=== PATIENT | female | born 1960 | race Caucasian/White ===

== ENCOUNTER 2017-02-12 04:01 | Emergency (ER) | payer OTHER ==
[2017-02-12 04:20] VITALS: BMI 28.1
[2017-02-12] MEDS ORDERED: morphine CARPU-JECT 4 MG/1 ML DISP.SYRIN IVPUSH ONE (04:47)
[2017-02-12] MEDS ORDERED: ONDANSETRON 4 MG/2 ML VIAL IVPUSH ONE ×3 (04:47→12:08)
[2017-02-12] MEDS ORDERED: SODIUM CHLORIDE 1,000 ML IV STA (04:47)
--- NOTE | 2017-02-12 04:51 | PDOC ---
History of Present Illness - General History Source: Patient, Significant Other Exam Limitations: No Limitations - History of Present Illness Travel History: No Initial Comments: 02/12/17 04:47 56yo Female patient w/ PmHx: Gastritis, Hiatal Hernia presents to ED c/o generalized abdominal pain that began around 3 am this morning w/ profound diarrhea and vomiting. Patient denies fever, cough, congestion, dysuria, hematuria, back pain, CP, diff breathing or any other complaints at this time. Timing/Duration: reports: getting worse. denies: constant, changing over time, intermittent, resolved prior to arrival, gone now, other Quality: reports: moderate, cramping, sharpness. denies: mild, severe, aching, burning, dullness, fullness, stabbing, throbbing, other Abdominal Pain Onset Location: reports: generalized abdomen. denies: RUQ, LUQ, RLQ, LLQ, epigastric, periumbilical, suprapubic, flank, unknown, other <Grace Virgen - Last Filed: 02/12/17 04:47> <Natali Mcmahon - Last Filed: 02/12/17 12:00> - General Chief Complaint: Diarrhea Stated Complaint: ABDOMINAL PAIN Time Seen by Provider: 02/12/17 04:08 Past History - Travel Traveled outside of the country in the last 30 days: No Close contact w/someone who was outside of country & ill: No - Past Medical History Anemia: No Asthma: No Cancer: No Cardiac Disorders: No CVA: No COPD: No CHF: No Dementia: No GI Disorders: Yes (CHRONIC GASTRITIS; HERNIA) Disorders: No HTN: No Hypercholesterolemia: No Liver Disease: No Seizures: No Thyroid Disease: No - Surgical History Abdominal Surgery: No Appendectomy: No Cardiac Surgery: No Cholecystectomy: No Lung Surgery: No Neurologic Surgery: No Orthopedic Surgery: No - Suicide/Smoking/Psychosocial Hx Smoking Status: No Smoking History: Never smoked Have you smoked in the past 12 months: No Number of Cigarettes Smoked Daily: 0 Information on smoking cessation initiated: No Hx Alcohol Use: No Drug/Substance Use Hx: No Substance Use Type: None Hx Substance Use Treatment: No <Grace Virgen - Last Filed: 02/12/17 04:47> <Natali Mcmahon - Last Filed: 02/12/17 12:00> - Past Medical History Allergies/Adverse Reactions: Allergies Allergy/AdvReac Type Severity Reaction Status Date / Time No Known Drug Allergies Allergy Verified 02/12/17 04:20 Home Medications: Ambulatory Orders No Home Medications 0 dose .ROUTE UTDICT 04/03/12 Dicyclomine HCl [Bentyl] 20 mg PO QID PRN #56 capsule 02/12/17 Loperamide HCl [Loperamide] 2 mg PO QID #10 tablet MDD 16mg 02/12/17 Abd/GI Specific PMHX - Complaint Specific PMHX Colitis: No Diverticulitis: No Gall Bladder Disease: No GERD: No Hepatitis: No Irritable Bowel Synd (IBS): No Pancreatitis: No GI Ulcer Disease: No <Grace Virgen - Last Filed: 02/12/17 04:47> Review of Systems - Review of Systems Able to Perform ROS?: Yes Is the patient limited [place] proficient: No Constitutional: No: Chills, Fever ABD/GI: Yes: Diarrhea, Nausea, Vomiting, Abdominal cramping (Generalized). No: Constipated All Other Systems: Reviewed and Negative <Grace Virgen - Last Filed: 02/12/17 04:47> *Physical Exam - Vital Signs Last Vital Signs Temp Pulse Resp BP Pulse Ox 98.8 F 95 H 20 131/79 98 02/12/17 04:11 02/12/17 04:11 02/12/17 04:11 02/12/17 04:11 02/12/17 04:11 - Physical Exam General Appearance: Yes: Nourished, Appropriately Dressed, Mild Distress. No: Apparent Distress, Moderate Distress, Severe Distress Respiratory/Chest: positive: Lungs Clear, Normal Breath Sounds. negative: Chest Tender, Respiratory Distress, Accessory Muscle Use, Labored Respiration, Rapid RR, Paradoxal Breathing, Rhonchi, Stridor, Wheezing, Hyperresonant Cardiovascular: positive: Regular Rhythm, Regular Rate Gastrointestinal/Abdominal: positive: Tender, Soft, Decreased BS, Distended, Guarding, Rebound, Tenderness Musculoskeletal: positive: Normal Inspection. negative: CVA Tenderness, Decreased Range of Motion, Vertebral Tenderness Extremity: positive: Normal Capillary Refill, Normal Inspection, Normal Range of Motion. negative: Pedal Edema, Swelling, Calf Tenderness, Erythema, Inflammation Integumentary: positive: Normal Color, Dry, Warm Neurologic: positive: gear and spline grinder II-XII NML intact, Fully Oriented, Alert, Normal Mood/ Affect, Normal Response, Motor Strength 5/5 <Grace Virgen - Last Filed: 02/12/17 04:47> - Vital Signs Last Vital Signs Temp Pulse Resp BP Pulse Ox 98.6 F 89 18 131/74 98 02/12/17 08:11 02/12/17 08:11 02/12/17 08:11 02/12/17 08:11 02/12/17 08:11 <Natali Mcmahon - Last Filed: 02/12/17 12:00> ED Treatment Course - RADIOLOGY Radiology Studies Ordered: Category Date Time Status ABDOMEN & PELVIS CT WITH CONTR [CT] Stat CT Scan 02/12/17 04:44 Ordered CHEST X-RAY PORTABLE* [RAD] Stat Radiology 02/12/17 04:44 Ordered <Grace Virgen - Last Filed: 02/12/17 04:47> - LABORATORY CBC & Chemistry Diagram: 02/12/17 05:05 02/12/17 06:29 - ADDITIONAL ORDERS Additional order review: Laboratory Results 02/12/17 02/12/17 02/12/17 06:29 06:29 05:51 PT with INR INR Sodium 142 Cancelled Potassium 3.7 Cancelled Chloride 109 H Cancelled Carbon Dioxide 25 Cancelled Anion Gap 8 Cancelled BUN 14 D Cancelled Creatinine 0.8 D Cancelled Creat Clearance w eGFR > 60 Cancelled Random Glucose 147 H D Cancelled Calcium 8.0 L Cancelled Total Bilirubin 0.5 D Cancelled AST 32 D Cancelled ALT 44 D Cancelled Alkaline Phosphatase 99 D Cancelled Creatine Kinase 156 Creatine Kinase Index 0.9 CK-MB (CK-2) 1.556 Troponin I < 0.02 Total Protein 7.0 Cancelled Albumin 3.6 Cancelled Total Amylase 95 Lipase 100 02/12/17 02/12/17 02/12/17 05:05 05:05 05:05 PT with INR 12.20 H INR 1.08 Sodium Cancelled Potassium Cancelled Chloride Cancelled Carbon Dioxide Cancelled Anion Gap Cancelled BUN Cancelled Creatinine Cancelled Creat Clearance w eGFR Cancelled Random Glucose Cancelled Calcium Cancelled Total Bilirubin Cancelled AST Cancelled ALT Cancelled Alkaline Phosphatase Cancelled Creatine Kinase Cancelled Creatine Kinase Index CK-MB (CK-2) Troponin I Cancelled Total Protein Cancelled Albumin Cancelled Total Amylase Cancelled Lipase Cancelled 02/12/17 05:05 RBC 4.85 MCV 91.8 MCHC 32.8 RDW 14.6 MPV 9.5 Neutrophils % 78.3 Lymphocytes % 11.9 D Monocytes % 7.8 Eosinophils % 1.3 Basophils % 0.7 - Medications Given in the ED: ED Medications Discontinued Medications Generic Name Dose Route Start Last Admin Trade Name Sarwat PRN Reason Stop Dose Admin Hydromorphone HCl 1 mg 02/12/17 07:05 02/12/17 08:00 Dilaudid Injection - IVPUSH 02/12/17 07:06 1 mg ONCE ONE Administration Sodium Chloride 1,000 mls @ 1,000 mls/hr 02/12/17 04:47 02/12/17 05:13 Normal Saline - IV 02/12/17 05:46 1,000 mls/hr ASDIR STA Administration Famotidine/Sodium Chloride 20 mg in 50 mls @ 100 mls/hr 02/12/17 07:40 08:03 Pepcid 20 Mg Premixed Ivpb - IVPB 02/12/17 08:09 100 mls/hr ONCE ONE Administration Morphine Sulfate 4 mg 02/12/17 04:47 02/12/17 05:25 Morphine Injection - IVPUSH 02/12/17 04:48 4 mg ONCE ONE Administration Ondansetron HCl 4 mg 02/12/17 04:47 02/12/17 05:25 Zofran Injection IVPUSH 02/12/17 04:48 4 mg ONCE ONE Administration Ondansetron HCl 4 mg 02/12/17 09:31 02/12/17 09:31 Zofran Injection IVPUSH 02/12/17 09:32 4 mg NOW ONE Administration Sodium Chloride 1,000 ml 02/12/17 09:34 02/12/17 10:21 Normal Saline - IV 02/12/17 09:35 1,000 ml ONCE STA Administration <Natali Mcmahon - Last Filed: 02/12/17 12:00> Progress Note - Progress Note Progress Note: discussed in detail via kyrgyz speaking RN Sally goldman instructions to the patient and the family regarding the plan of care. pt has no vomiting or diarrhea while in ER had one loose stool at 10am. pt understands the diet should be clears, the pt is given medications to help with her symptoms. pt will return to ER if any worsening symptoms, bloody stool, vomiting or fever. <Natali Mcmahon - Last Filed: 02/12/17 12:00> *DC/Admit/Observation/Transfer <Grace Virgen - Last Filed: 02/12/17 04:47> <Natali Mcmahon - Last Filed: 02/12/17 12:00> Diagnosis at time of Disposition: Colitis - Discharge Dispostion Disposition: HOME Condition at time of disposition: Fair - Prescriptions Prescriptions: Dicyclomine HCl [Bentyl] 20 mg PO QID PRN #56 capsule PRN Reason: abdominal cramping/pain Loperamide HCl [Loperamide] 2 mg PO QID #10 tablet MDD 16mg - Referrals Referrals: Kerline Thurston MD [Primary Care Provider] - Moe Bunn MD [Staff Physician] - - Patient Instructions Printed Discharge Instructions: DI for Colitis Additional Instructions: drink pleanty of water to stay hydrated bland diet take the medications as prescribed follow with the daycare worker Dr. Bunn next week for follow up Return to ER for any worsening symptoms
--- NOTE | 2017-02-12 04:54 | PDOC ---
*Physical Exam - Vital Signs Last Vital Signs Temp Pulse Resp BP Pulse Ox 98.8 F 95 H 20 131/79 98 02/12/17 04:11 02/12/17 04:11 02/12/17 04:11 02/12/17 04:11 02/12/17 04:11 ED Treatment Course - LABORATORY CBC & Chemistry Diagram: 02/12/17 05:05 02/12/17 06:29 Medical Decision Making - Medical Decision Making 02/12/17 04:54 agree with care from DARRELL Virgen *DC/Admit/Observation/Transfer Diagnosis at time of Disposition: Colitis - Discharge Dispostion Disposition: HOME Condition at time of disposition: Fair - Prescriptions Prescriptions: Dicyclomine HCl [Bentyl] 20 mg PO QID PRN #56 capsule PRN Reason: abdominal cramping/pain Loperamide HCl [Loperamide] 2 mg PO QID #10 tablet MDD 16mg - Referrals Referrals: Moe Bunn MD [Staff Physician] - Kerline Thurston MD [Primary Care Provider] - - Patient Instructions Printed Discharge Instructions: DI for Colitis Additional Instructions: drink pleanty of water to stay hydrated bland diet take the medications as prescribed follow with the circuit breaker mechanic Dr. Bunn next week for follow up Return to ER for any worsening symptoms - Post Discharge Activity
[2017-02-12 05:08] LABS: BASOPHIL 0.7 % (0-2.0); EOSINOPHIL 1.3 % (0-4.5); MCH 30.1 pg (25.7-33.7); MCHC 32.8 g/dl (32.0-36.0); MEAN CELL VOLUME 91.8 fl (80-96); MEAN PLT VOLUME 9.5 fl (7.5-11.1); NEUTROPHILS 78.3 % (42.8-82.8); PLATELET COUNT 273 K/MM3 (134-434); RDW 14.6 % (11.6-15.6); WHITE BLOOD COUNT 12.7 K/mm3 (4.0-10.0)
[2017-02-12] MEDS ORDERED: morphine SULFATE 4 MG/ML VIAL ONE (05:17)
[2017-02-12] MEDS ORDERED: ONDANSETRON 4 MG/2 ML VIAL ONE ×2 (05:17→09:27)
[2017-02-12 05:20] LABS: INR 1.08 (0.82-1.09); PROTHROMBIN TIME (PATIENT) 12.2 SEC (9.98-11.88)
[2017-02-12] MEDS ORDERED: HYDROmorphone HCL CARPU-JECT 1 MG/1 ML DISP.SYRIN IVPUSH ONE (07:05)
[2017-02-12 07:08] LABS: AMYLASE 95 U/L (25-115); CPK 156 IU/L (26-192)
[2017-02-12 07:09] LABS: TROPONIN I < 0.02 ng/ml (0.00-0.05)
[2017-02-12] MEDS ORDERED: FAMOTIDINE 20 MG/50 ML IVPB 20 MG/50 ML MG IVPB ONE ×2 (07:40→07:58)
[2017-02-12 07:46] LABS: ALBUMIN 3.6 g/dl (3.4-5.0); ANION GAP 8 (8-16); BILIRUBIN,TOTAL 0.5 mg/dL (0.2-1.0); CO2 25 mmol/L (21-32); CREATININE 0.8 mg/dL (0.55-1.02); GLUCOSE,RANDOM 147 mg/dL (74-106); SGOT/AST 32 U/L (15-37)
[2017-02-12] MEDS ORDERED: HYDROmorphone HCL CARPU-JECT 1 MG/1 ML DISP.SYRIN ONE (07:58)
[2017-02-12 08:04] LABS: ALK PHOS 99 U/L (45-117); SGPT/ALT 44 U/L (12-78)
[2017-02-12 08:14] VITALS: TEMP 98.6
[2017-02-12] MEDS ORDERED: SODIUM CHLORIDE 0.9% 1000 ML INFUS.BAG IV STA (09:34)
[2017-02-12] MEDS ORDERED: ONDANSETRON *ODT* 4 MG TABLET SL ONE (12:10)
[2017-02-12] MEDS ORDERED: ONDANSETRON *ODT* 4 MG TABLET ONE (12:11)
--- NOTE | 2017-02-12 12:11 | EKG ---
Test Reason : Blood Pressure : / mmHG Vent. Rate : 057 BPM Atrial Rate : 057 BPM P-R Int : 140 ms QRS Dur : 082 ms QT Int : 464 ms P-R-T Axes : 026 019 004 degrees QTc Int : 451 ms SINUS BRADYCARDIA LOW VOLTAGE QRS NONSPECIFIC T WAVE ABNORMALITY ABNORMAL ECG WHEN COMPARED WITH ECG OF 03-APR-2012 13:22, NONSPECIFIC T WAVE ABNORMALITY NOW EVIDENT IN LATERAL LEADS Confirmed by FRANCOIS MANNING, DELICIA ([id number]) on 02/12/2017 12:10:42 PM Referred By: Confirmed By:DELICIA PARRISH MD
[2017-02-12 12:13] VITALS: BP 145/86; PULSE 59
== END 2017-02-12 12:14 | disposition home or self-care (01) ==
LOC: JER 04:01
PROC: 3E033GC Introduction of Other Therapeutic Substance into Peripheral Vein, Percutaneous Approach (ICD-10-PCS; principal; 2017-02-12)
PROC: 3E033GC Introduction of Other Therapeutic Substance into Peripheral Vein, Percutaneous Approach (ICD-10-PCS; 2017-02-12)
PROC: 3E033GC Introduction of Other Therapeutic Substance into Peripheral Vein, Percutaneous Approach (ICD-10-PCS; 2017-02-12)
PROC: 3E033NZ Introduction of Analgesics, Hypnotics, Sedatives into Peripheral Vein, Percutaneous Approach (ICD-10-PCS; 2017-02-12)
PROC: 3E033NZ Introduction of Analgesics, Hypnotics, Sedatives into Peripheral Vein, Percutaneous Approach (ICD-10-PCS; 2017-02-12)
DX: K52.9 Noninfective gastroenteritis and colitis, unspecified (principal); K29.50 Unspecified chronic gastritis without bleeding
CPT/HCPCS: 36415; 71010-TC; 74177-TC; 80053; 82150; 82550; 82553; 83690; 84484; 85025; 85610; 93005; 93010; 99284-25

== ENCOUNTER 2017-12-27 06:45 | Emergency (ER) | payer OTHER ==
[2017-12-27] MEDS ORDERED: SODIUM CHLORIDE 1,000 ML IV STA (07:24)
[2017-12-27 07:26] VITALS: BMI 27.3
--- NOTE | 2017-12-27 07:35 | PDOC ---
History of Present Illness - General Chief Complaint: Pain, Acute Stated Complaint: PAIN,RT SIDE Time Seen by Provider: 12/27/17 07:22 History Source: Patient - History of Present Illness Initial Comments: 12/27/17 07:33 57 year old female with a PMH of nephrolithiasis, HTN and recent (10 days previous) ventral hernia repair presents to our ED c/o worsening R flank pain. Pain is constant, 7/10, and localized to her R flank. States she took 2 Tylenol (500 mg) with little relief of her pain. Surgical: ventral hernia repair, R ovarian cyst removal, hysterectomy Past History - Past Medical History Allergies/Adverse Reactions: Allergies Allergy/AdvReac Type Severity Reaction Status Date / Time No Known Drug Allergies Allergy Verified 12/27/17 07:12 Home Medications: Ambulatory Orders NK [No Known Home Medication] 12/27/17 Anemia: No Asthma: No Cancer: No Cardiac Disorders: No CVA: No COPD: No CHF: No Dementia: No GI Disorders: Yes (CHRONIC GASTRITIS; HERNIA) Disorders: No HTN: No Hypercholesterolemia: No Liver Disease: No Seizures: No Thyroid Disease: No - Surgical History Abdominal Surgery: No Appendectomy: No Cardiac Surgery: No Cholecystectomy: No Lung Surgery: No Neurologic Surgery: No Orthopedic Surgery: No - Suicide/Smoking/Psychosocial Hx Smoking Status: No Smoking History: Never smoked Have you smoked in the past 12 months: No Number of Cigarettes Smoked Daily: 0 Hx Alcohol Use: No Drug/Substance Use Hx: No Substance Use Type: None Hx Substance Use Treatment: No *Physical Exam - Vital Signs Last Vital Signs Temp Pulse Resp BP Pulse Ox 97.9 F 60 20 129/80 98 12/27/17 07:09 12/27/17 07:09 12/27/17 07:09 12/27/17 07:09 12/27/17 07:09 Medical Decision Making - Medical Decision Making 12/27/17 07:36 57 year old female with R flank pain. H/o recent ventral hernia repair *DC/Admit/Observation/Transfer - Referrals Referrals: Mady Doran MD [Primary Care Provider] - - Patient Instructions - Post Discharge Activity
[2017-12-27] MEDS ORDERED: KETOROLAC TROMETHAMINE 15 MG/ML VIAL IVPUSH ONE (07:59)
--- NOTE | 2017-12-27 08:01 | PDOC ---
History of Present Illness - General Chief Complaint: Pain, Acute Stated Complaint: PAIN,RT SIDE Time Seen by Provider: 12/27/17 07:22 History Source: Patient, Family Exam Limitations: No Limitations - History of Present Illness Initial Comments: 12/27/17 08:00 Wilder 57 YOF with h/o kidney stones, recent hernia repair, previous colitis, presenting with acute onset of worsening right flank and abdominal pain x 1 day , beginning 4pm yesterday. took tylenol today, without relief. denies trauma, exacerbating or alleviating factors recent post op from laparoscopic hernia repair with Dr. Sawyer? in [place] , uncomplicated course no f/c, vomiting, diarrhea, constipation, cp, sob, leg swelling, weakness or paresthesias, salcedo, dizziness, dysuria, frequency or urgency. denies ETOH, tobacco or drug use PSHx: tubal ligation, lap hernia repair 12/27/17 08:03 Past History - Past Medical History Allergies/Adverse Reactions: Allergies Allergy/AdvReac Type Severity Reaction Status Date / Time No Known Drug Allergies Allergy Verified 12/27/17 07:12 Home Medications: Ambulatory Orders Ciprofloxacin [Cipro -] 500 mg PO Q12H 10 Days #20 tablet 12/27/17 metroNIDAZOLE [Flagyl -] 500 mg PO BID 10 Days #20 tablet 12/27/17 Anemia: No Asthma: No Cancer: No Cardiac Disorders: No CVA: No COPD: No CHF: No Dementia: No GI Disorders: Yes (CHRONIC GASTRITIS; HERNIA) Disorders: No HTN: No Hypercholesterolemia: No Liver Disease: No Seizures: No Thyroid Disease: No - Surgical History Abdominal Surgery: No Appendectomy: No Cardiac Surgery: No Cholecystectomy: No Lung Surgery: No Neurologic Surgery: No Orthopedic Surgery: No - Suicide/Smoking/Psychosocial Hx Smoking Status: No Smoking History: Never smoked Have you smoked in the past 12 months: No Number of Cigarettes Smoked Daily: 0 Hx Alcohol Use: No Drug/Substance Use Hx: No Substance Use Type: None Hx Substance Use Treatment: No Abd/GI Specific PMHX - Complaint Specific PMHX Colitis: No Diverticulitis: No Gall Bladder Disease: No GERD: No Hepatitis: No Irritable Bowel Synd (IBS): No Pancreatitis: No GI Ulcer Disease: No Review of Systems - Review of Systems Able to Perform ROS?: Yes Comments:: 12/27/17 08:07 Constitutional: no fevers or chills. HEENT: no headache or dizziness. no congestion. CVS: no cp or syncope. Resp: no sob. no cough. Abdomen: +abdominal pain, no diarrhea, constipation, bloody stools, nausea or vomiting. Back: +back pain : no urinary sx, dysuria, urgency or frequency. MUSCULOSKELETAL: No joint pain and swelling. No neck pain. SKIN: no redness or skin changes, no discharge, no rash. Hematologic: no easy bruising/bleeding. NEUROLOGIC: No headache, dizziness, LOC or altered mental status. No weakness, numbness or tingling. All other systems reviewed and negative, or as documented in HPI. *Physical Exam - Vital Signs Last Vital Signs Temp Pulse Resp BP Pulse Ox 97.9 F 60 20 129/80 98 12/27/17 07:09 12/27/17 07:09 12/27/17 07:09 12/27/17 07:09 12/27/17 07:09 - Physical Exam Comments: 12/27/17 08:08 General: Well appearing, awake and alert, NAD. HEENT: NCAT, PERRL, EOMI, clear conjunctiva, anicteric, moist mucus membranes, clear oropharynx, no oral lesions.. Neck: neck supple, FROM Resp: CTAB, normal and even respirations, no respiratory distress CVS: RRR, no murmurs, 2+ peripheral pulses throughout, no peripheral edema Abdomen: soft, +right sided and suprapubic TTP, no peritoneal signs. +right CVAT. neg Zamudio's, neg Mcburney's point. no rebound or guarding. Back: normal inspection and ROM MSK: no edema, CHANDRA x4, ROM intact. No clubbing or cyanosis. normal bulk and tone. Neuro: alert, oriented appropriately; no focal neurologic deficits Skin: warm and well perfused, cap refill <2 sec, normal color ED Treatment Course - LABORATORY CBC & Chemistry Diagram: 12/27/17 08:30 12/27/17 08:30 Medical Decision Making - Medical Decision Making 12/27/17 08:09 57 YOF with AP and flank pain x 1 day. recent lap hernia repair 10 days ago, uncomplicated course. DDx abdominal pain: Renal colic, biliary colic, GERD, PUD, esophageal spasm, pancreatitis, hepatitis, constipation, colitis, gastroenteritis, cholecystitis, UTI, pyelonephritis, ileus, SBO, medication side effect, hernia, appendicitis, diverticulitis, mesenteric ischemia. vitals wnl, afebrile POCUS renal at bedside: bilateral mild hydro noted, with color doppler; full bladder with bilateral jets visualized. biliary sludge, neg for acute cholecystitis. CBD size ~4-5cm concordant with age. ED course: given IVF and analgesia with NSAIDS, trial of PO tylenol earlier today without relief labs and lytes wnl, no wbc ct. UA neg for blood or infection, so less likely stone/renal colic. CT meghna to r/o obstructing stone. CT a/p with peripelvic cysts, no hydro. focal thickening in desc/sigmoid colon, correlating with possible early acute colitis. will treat with abx, cipro/flagyl x 10 days, instructions to take with food, light food diet/hydration, avoid food triggers and fibrous foods until sx improve. continue with OTC tyl/motrin as needed. on clinical reeval, feels much improved, rachel PO, well appearing, mild lower quad tenderness without peritoneal findings, VS wnl, no fever and feels comfortable with discharge plan and PMD followup dispo: Pt to be discharged in stable condition. Patient and family made aware of impression and plan, return precautions discussed (including but not limited to worsening pain or symptoms), fevers, or signs of infection, chest pain, respiratory distress, inability to tolerate oral intake, dehydration, syncope, or neurologic changes). Follow up with PMD and/or specialist as recommended, follow up information provided, take medications as instructed for duration of time. continue with supportive care, avoid triggers and precipitants. 12/27/17 10:52 *DC/Admit/Observation/Transfer Diagnosis at time of Disposition: Colitis, Abdominal pain - Discharge Dispostion Disposition: HOME Condition at time of disposition: Improved Decision to Admit order: No - Prescriptions Prescriptions: Ciprofloxacin [Cipro -] 500 mg PO Q12H 10 Days #20 tablet metroNIDAZOLE [Flagyl -] 500 mg PO BID 10 Days #20 tablet - Referrals Referrals: Mady Doran MD [Primary Care Provider] - - Patient Instructions Printed Discharge Instructions: DI for Abdominal Pain-Adult, DI for Colitis Additional Instructions: Your laboratory / imaging results were normal, urine testing also negative for infection or blood. Your CT scan showed cysts in your kidney area, but no swelling or abnormalities to suggest kidney stones. There is a focal area of possible early inflammation and thickening in colon which can be treated with antibiotics for 10 days. You are given ciprofloxacin and flagyl for 10 days, take twice a day. Take with food, avoid alcohol. Light diet to be continued, adequate hydration encouraged, avoid precipitating food factors such as fatty, fiber or spicy foods. Follow up with your physician, primary doctor. Return if worsening symptoms including fevers, headache, vomiting, visual or hearing disturbances, abdominal pain, chest pain, shortness of breath, syncope, dehydration, inability to take things by mouth/vomiting, altered mental status, or worsening concerning symptoms. your medications on discharge include antibiotics with side effects may include upset stomach, abdominal pain, vomiting, or diarrhea. do not drink alcohol with your medications. Bradley resultados de laboratorio / imagenologa fueron normales, las pruebas de orina tambin fueron negativas para la infeccin o la sujey. Lee tomografa computarizada mostr quistes en el andres de los riones, harriet no hay inflamacin ni anomalas que sugieran clculos renales. Existe un andres focal de posible inflamacin temprana y engrosamiento en el colon que puede tratarse con antibiticos nitish 10 de la garza. Se le administrar ciprofloxacina y flagilo nitish 10 de la garza, dos veces al da. David con la comida, evitar el alcohol. Dieta ligera para continuar, se recomienda elizabeth hidratacin adecuada, evite precipitar factores alimenticios melani los alimentos grasos, de fibra o picantes. Seguimiento con lee mdico, mdico caro. Regrese si los sntomas empeoran, incluyendo fiebre, dolor de ayanna, vmitos, trastornos visuales o auditivos, dolor abdominal, dolor de pecho, falta de aliento, sncope, deshidratacin, incapacidad para david cosas por la boca / vmitos, estado mental alterado o empeoramiento de los sntomas. bradley medicamentos para el nohemy incluyen antibiticos con efectos secundarios que pueden incluir malestar estomacal, dolor abdominal, vmitos o diarrea. No tome alcohol con bradley medicamentos. Print Language: YAKUT - Post Discharge Activity
[2017-12-27] MEDS ORDERED: KETOROLAC TROMETHAMINE 15 MG/ML VIAL ONE (08:38)
[2017-12-27 08:47] LABS: BASO % 0.5 % (0-2.0); EOS % 1.6 % (0-4.5); HEMATOCRIT 46.4 % (32.4-45.2); HEMOGLOBIN 15.3 GM/dL (10.7-15.3); LYMPH % 18.9 % (8-40); MCH 30.6 pg (25.7-33.7); MEAN PLT VOLUME 9.2 fl (7.5-11.1); MONO % 6.4 % (3.8-10.2); NEUT % 72.6 % (42.8-82.8); PLATELET COUNT 306 K/MM3 (134-434); RBC 4.99 M/mm3 (3.60-5.2); RDW 14.4 % (11.6-15.6); WHITE BLOOD COUNT 9.6 K/mm3 (4.0-10.0)
[2017-12-27 08:48] LABS: URINE APPEARANCE CLOUDY; URINE BILIRUBIN NEGATIVE (<2.0 mg/dL); URINE COLOR YELLOW; URINE GLUCOSE (UA) NEGATIVE (NEGATIVE); URINE KETONE NEGATIVE (NEGATIVE); URINE LEUK ESTERASE NEGATIVE (NEGATIVE); URINE NITRITE NEGATIVE (NEGATIVE); URINE PROTEIN NEGATIVE (NEGATIVE); URINE UROBILINOGEN NEGATIVE mg/dL (0.2-1.0)
[2017-12-27 09:07] LABS: ALBUMIN 4.1 g/dl (3.4-5.0); ALK PHOS 103 U/L (45-117); ANION GAP 7 MMOL/L (8-16); BILIRUBIN,TOTAL 0.7 mg/dL (0.2-1); BLOOD UREA NITROGEN 9 mg/dL (7-18); CALCIUM 9.4 mg/dL (8.5-10.1); CHLORIDE 103 mmol/L (98-107); CO2 29 mmol/L (21-32); CREATININE 0.9 mg/dL (0.55-1.3); GLUCOSE,RANDOM 112 mg/dL (74-106); LIPASE 106 U/L (73-393); POTASSIUM 3.9 mmol/L (3.5-5.1); SGOT/AST 24 U/L (15-37); SGPT/ALT 38 U/L (13-61); SODIUM 139 mmol/L (136-145); TOT PROT 8.2 g/dl (6.4-8.2)
[2017-12-27] MEDS ORDERED: morphine CARPU-JECT 4 MG/1 ML DISP.SYRIN IVPUSH ONE (10:07)
[2017-12-27] MEDS ORDERED: metroNIDAZOLE 500 MG TABLET PO ONE (10:38)
[2017-12-27] MEDS ORDERED: CIPROFLOXACIN 500 MG TABLET (RESTRICTED TO ID) PO ONE (10:38)
[2017-12-27 10:49] VITALS: BP 139/83; PULSE 56; TEMP 97.5
[2017-12-27] MEDS ORDERED: metroNIDAZOLE 250 MG TABLET ONE (11:08)
== END 2017-12-27 11:19 | disposition home or self-care (01) ==
LOC: JER 06:45
DX: K52.9 Noninfective gastroenteritis and colitis, unspecified (principal); Z87.442 Personal history of urinary calculi; Z87.19 Personal history of other diseases of the digestive system
CPT/HCPCS: 36415; 74176; 80053; 81003; 83690; 85025; 87086; 99283-25; J7030

== ENCOUNTER 2019-02-18 00:29 | Emergency (ER) | payer OTHER ==
[2019-02-18 01:38] VITALS: BP 138/92; PULSE 74; TEMP 98; BMI 28.3
[2019-02-18 02:45] LABS: EPI CELLS 0.4 /HPF (0-5/HPF); HYALINE CASTS 3 /lpf (0-8); URINE APPEARANCE CLEAR; URINE BACTERIA 0.3 /hpf (NEGATIVE); URINE BILIRUBIN NEGATIVE (NEGATIVE); URINE COLOR YELLOW; URINE GLUCOSE (UA) NEGATIVE (NEGATIVE); URINE KETONE NEGATIVE (NEGATIVE); URINE LEUK ESTERASE NEGATIVE (NEGATIVE); URINE NITRITE NEGATIVE (NEGATIVE); URINE PROTEIN NEGATIVE (NEGATIVE); URINE RBC 18 /hpf (0-4); URINE UROBILINOGEN 0.2 mg/dL (0.2-1.0); URINE WBC 3 /hpf (0-5)
[2019-02-18 02:58] LABS: BLOOD UREA NITROGEN 12.9 mg/dL (7-18); CALCIUM 9.2 mg/dL (8.5-10.1); POTASSIUM 4.5 mmol/L (3.5-5.1)
[2019-02-18] MEDS ORDERED: KETOROLAC TROMETHAMINE 60 MG/2 ML VIAL IM ONE (03:08)
--- NOTE | 2019-02-18 03:29 | PDOC ---
History of Present Illness - General Chief Complaint: Pain, Acute Stated Complaint: LEFT SIDE PAIN Time Seen by Provider: 02/18/19 01:32 History Source: Patient Exam Limitations: Language Barrier ([employer] [id number]) - History of Present Illness Initial Comments: 02/18/19 03:29 58F with a PMH of nephrolithiasis who presents to the ER with complaints of L flank pain. The patient states that she was having difficulty walking from the pain but has been taking her oxycodone, last was 8 hours ago. Denies dysuria but has been taking her antibiotics. She states that she had a laser procedure for her stone 5 days ago and had follow up yesterday. Past History - Past Medical History Allergies/Adverse Reactions: Allergies Allergy/AdvReac Type Severity Reaction Status Date / Time No Known Drug Allergies Allergy Verified 02/18/19 01:38 Home Medications: Ambulatory Orders Ciprofloxacin [Cipro -] 500 mg PO Q12H 10 Days #20 tablet 12/27/17 metroNIDAZOLE [Flagyl -] 500 mg PO BID 10 Days #20 tablet 12/27/17 Anemia: No Asthma: No Cancer: No Cardiac Disorders: No CVA: No COPD: No CHF: No Dementia: No GI Disorders: Yes (CHRONIC GASTRITIS; HERNIA) Disorders: No HTN: No Hypercholesterolemia: No Liver Disease: No Seizures: No Thyroid Disease: No - Surgical History Abdominal Surgery: No Appendectomy: No Cardiac Surgery: No Cholecystectomy: No Lung Surgery: No Neurologic Surgery: No Orthopedic Surgery: No - Psycho Social/Smoking Cessation Hx Smoking Status: No Smoking History: Never smoked Have you smoked in the past 12 months: No Number of Cigarettes Smoked Daily: 0 Hx Alcohol Use: No Drug/Substance Use Hx: No Substance Use Type: None Hx Substance Use Treatment: No Review of Systems - Review of Systems Able to Perform ROS?: Yes Comments:: 02/18/19 03:33 GENERAL/CONSTITUTIONAL: No fever or chills. No weakness. HEAD, EYES, EARS, NOSE AND THROAT: No change in vision. No ear pain or discharge. No sore throat. CARDIOVASCULAR: No chest pain, palpitations, or lightheadedness. RESPIRATORY: No cough, wheezing, shortness of breath, or hemoptysis. GASTROINTESTINAL: No abdominal pain, nausea, vomiting, diarrhea, or constipation. GENITOURINARY: + for nephrolithiasis and L flank pain. No dysuria, frequency, hematuria, or change in urination. MUSCULOSKELETAL: No joint or muscle swelling or pain. No neck or back pain. SKIN: No rash or lesions. NEUROLOGIC: No headache, numbness, tingling, focal weakness, loss of consciousness, or change in strength/sensation. Is the patient limited Romansh proficient: No *Physical Exam - Vital Signs Last Vital Signs Temp Pulse Resp BP Pulse Ox 98 F 74 18 138/92 98 02/18/19 00:30 02/18/19 00:30 02/18/19 00:30 02/18/19 00:30 02/18/19 00:30 - Physical Exam Comments: 02/18/19 03:33 GENERAL: Well developed, well nourished. Awake and alert. No acute distress. HEENT: Normocephalic, atraumatic. Hearing grossly normal. Moist mucous membranes. PERRLA, EOMI. No conjunctival pallor. Sclera are non-icteric. NECK: Supple. Full ROM. No JVD. CARDIOVASCULAR: Regular rate and rhythm. No murmurs, rubs, or gallops. PULMONARY: No evidence of respiratory distress. Lungs clear to auscultation bilaterally. No wheezing, rales or rhonchi. ABDOMINAL: Soft. Non-tender. Non-distended. No rebound or guarding. GENITOURINARY: No CVA tenderness bilaterally. MUSCULOSKELETAL: Normal range of motion at all joints. No bony deformities or tenderness. EXTREMITIES: No cyanosis. No clubbing. No edema. No calf tenderness or swelling. SKIN: Warm and dry. Normal capillary refill. No rashes. No jaundice. NEUROLOGICAL: Alert, awake, appropriate. Cranial nerves 2-12 grossly intact. Normal speech. Gait is normal without ataxia. PSYCHIATRIC: Cooperative. Good eye contact. Appropriate mood and affect. ED Treatment Course - LABORATORY CBC & Chemistry Diagram: 02/18/19 02:23 - ADDITIONAL ORDERS Additional order review: Laboratory Results 02/18/19 02/18/19 02:23 02:23 Sodium 138 Potassium 4.5 Chloride 102 Carbon Dioxide 27 Anion Gap 9 BUN 12.9 Creatinine 1.0 Est GFR (CKD-EPI)AfAm 71.92 Est GFR (CKD-EPI)NonAf 62.05 Random Glucose 176 H Calcium 9.2 Urine Color Yellow Urine Appearance Clear Urine pH 7.0 Ur Specific Aragon 1.012 Urine Protein Negative Urine Glucose (UA) Negative Urine Ketones Negative Urine Blood 1+ H Urine Nitrite Negative Urine Bilirubin Negative Urine Urobilinogen 0.2 Ur Leukocyte Esterase Negative Urine WBC (Auto) 3 Urine RBC (Auto) 18 Urine Casts (Auto) 3 U Epithel Cells (Auto) 0.4 Urine Bacteria (Auto) 0.3 Medical Decision Making - Medical Decision Making 02/18/19 03:33 58F with a PMH of nephrolithiasis who presents for worsening L flank pain. Pt very comfortable appearing and history changed multiple times as I was talking with the patient. She first was concerned that the urologist left something in her after he did the procedure. Then she denies this and states that she wants IV antibiotics despite not finishing her course of abx. She then changes her story and states that she's in pain despite saying she was not in pain before. Cr WNL. Will give toradol and d/c with urology f/u. Discharge - Discharge Information Problems reviewed: Yes Clinical Impression/Diagnosis: Nephrolithiasis Condition: Fair Disposition: HOME - Admission No - Follow up/Referral Referrals: Ashley Ashby MD [Primary Care Provider] - - Patient Discharge Instructions Patient Printed Discharge Instructions: Kidney Stones -- Adult Additional Instructions: Your ER visit is not complete until your follow up with your primary care physician and urologist. Please follow up with your primary care physician and urologist in 1-2 days. Please return to the ER if you have any signs or symptoms of chest pain, shortness of breath, uncontrollable fever, chills, nausea, vomiting, numbness, tingling, or weakness in any part of your body, changes in vision, or slurred speech. Please take your medications as prescribed. Please return to the ER if symptoms persist, worsen, or new symptoms arise. Coulter visita a la ashutosh de emergencias no est completa hasta coulter seguimiento con coulter mdico de atencin primaria y urlogo. Srinivas un seguimiento con coulter mdico de atencin primaria y urlogo en 1-2 de la garza. Regrese a la ashutosh de emergencias si tiene signos o sntomas de dolor en el pecho , falta de aliento, fiebre incontrolable, escalofros, nuseas, vmitos, entumecimiento, hormigueo o debilidad en alguna parte de coulter cuerpo, cambios en la visin o dificultad para hablar. Por favor tome bradley medicamentos melani se los recetaron. Regrese a la ashutosh de emergencias si los sntomas persisten, empeoran o surgen nuevos sntomas. - Post Discharge Activity
[2019-02-18] MEDS ORDERED: KETOROLAC TROMETHAMINE 60 MG/2 ML VIAL ONE (03:31)
--- NOTE | 2019-02-18 03:40 | PDOC ---
Attending Attestation - Resident Resident Name: Zan Pena - ED Attending Attestation I have performed the following: I have examined & evaluated the patient, The case was reviewed & discussed with the resident, I agree w/resident's findings & plan - HPI HPI: 02/18/19 03:37 Pt had lithotripsy and stent placed. SHe is in pain despite the oxycodone and keflex and bactrim that she is taking. She is worried about her renal funciton and she is anxious. - Physicial Exam PE: 02/18/19 03:38 Normal exam. Minimal left flank pain with percussion. She has no abd pain. Pt is afebrile. Pt has no swelling or edema of extremities. No rashes Pt has no fever and no nausea and no vomiting and no diarrhea. - Medical Decision Making 02/18/19 03:39 Chem shows normal BUN/Cr Pt has 1+ blood in the urine, but no infection and she is feeling better; ready for discharge home.
== END 2019-02-18 03:49 | disposition home or self-care (01) ==
LOC: JER 00:29
PROC: 3E0233Z Introduction of Anti-inflammatory into Muscle, Percutaneous Approach (ICD-10-PCS; principal; 2019-02-18)
DX: N20.0 Calculus of kidney (principal)
CPT/HCPCS: 36415; 80048; 81003; 87086; 99282-25

== ENCOUNTER 2021-05-28 03:09 | Emergency (ER) | payer OTHER ==
[2021-05-28 03:29] VITALS: BMI 28.3
[2021-05-28] MEDS ORDERED: FAMOTIDINE 20 MG/50 ML IVPB 20 MG/50 ML MG IVPB ONE ×2 (03:31→04:51)
[2021-05-28] MEDS ORDERED: ONDANSETRON 4 MG/2 ML VIAL IVPUSH ONE (03:31)
[2021-05-28] MEDS ORDERED: ACETAMINOPHEN 1000 MG/100 ML BAG IVPB ONE (03:31)
[2021-05-28] MEDS ORDERED: ONDANSETRON 4 MG/2 ML VIAL ONE (04:51)
[2021-05-28] MEDS ORDERED: ACETAMINOPHEN INJECTION 100 ML IVPB ONE (04:51)
[2021-05-28 04:54] LABS: BASO % 0.5 % (0-2.0); EOS % 1.2 % (0-4.5); HEMATOCRIT 45.1 % (32.4-45.2); HEMOGLOBIN 14.9 GM/dL (10.7-15.3); LYMPH % 13.8 % (8-40); MCH 30.2 pg (25.7-33.7); MCHC 33.1 g/dl (32.0-36.0); MEAN CELL VOLUME 91.1 fl (80-96); MEAN PLT VOLUME 8.9 fl (7.5-11.1); MONO % 6.6 % (3.8-10.2); NEUT % 77.9 % (42.8-82.8); PLATELET COUNT 283 10^3/uL (134-434); RBC 4.95 M/mm3 (3.60-5.2); WHITE BLOOD COUNT 10.2 K/mm3 (4.0-10.0)
[2021-05-28 05:04] LABS: INR 1.14 (0.83-1.09); PROTHROMBIN TIME (PATIENT) 13.1 SEC (9.7-13.0)
[2021-05-28 05:07] LABS: ACTIVATED PTT 33.1 SECONDS (25.2-36.5)
[2021-05-28 05:12] LABS: ALBUMIN 4.1 g/dl (3.4-5.0); CALCIUM 9.5 mg/dL (8.5-10.1)
[2021-05-28 05:13] LABS: BLOOD UREA NITROGEN 16.2 mg/dL (7-18); MAGNESIUM 2.3 mg/dL (1.8-2.4)
[2021-05-28 05:17] LABS: BILIRUBIN,TOTAL 0.7 mg/dL (0.2-1); TOT PROT 8.1 g/dl (6.4-8.2)
[2021-05-28] MEDS ORDERED: LACTATED RINGERS SOLUTION 1000 ML INFUS.BAG IV ONE (05:27)
[2021-05-28 05:34] VITALS: BP 135/67; PULSE 62; TEMP 98
[2021-05-28] MEDS ORDERED: dilTIAZem HCL 50 MG/10 ML - 10 ML VIAL IVPUSH ONE (05:37)
[2021-05-28 05:57] LABS: URINE APPEARANCE CLEAR; URINE BILIRUBIN NEGATIVE (NEGATIVE); URINE COLOR YELLOW; URINE GLUCOSE (UA) NEGATIVE (NEGATIVE); URINE KETONE 1+ (NEGATIVE); URINE LEUK ESTERASE NEGATIVE (NEGATIVE); URINE NITRITE NEGATIVE (NEGATIVE); URINE PROTEIN NEGATIVE (NEGATIVE); URINE UROBILINOGEN 0.2 mg/dL (0.2-1.0)
[2021-05-28] MEDS ORDERED: AMOX TR/POT CLAV 875MG/125MG TABLETS (FP) PO ONE ×2 (06:29→06:44)
[2021-05-28] MEDS ORDERED: AMOX TR/POT CLAV 875MG/125MG TABLETS (FP) ONE (07:01)
[2021-05-28] MEDS ORDERED: FAMOTIDINE 20 MG TABLET PO ONE (09:10)
[2021-05-28] MEDS ORDERED: MAG HYDROX/AL HYDROX/SIMETH 30 ML UNIT-DOSE CUP PO ONE (09:10)
[2021-05-28] MEDS ORDERED: FAMOTIDINE 20 MG TABLET ONE (09:34)
[2021-05-28] MEDS ORDERED: MAG HYDROX/AL HYDROX/SIMETH 30 ML UNIT-DOSE CUP ONE (09:35)
== END 2021-05-28 10:04 | disposition home or self-care (01) ==
LOC: JER 03:09
PROC: 3E0333Z Introduction of Anti-inflammatory into Peripheral Vein, Percutaneous Approach (ICD-10-PCS; principal; 2021-05-28)
PROC: 3E033GC Introduction of Other Therapeutic Substance into Peripheral Vein, Percutaneous Approach (ICD-10-PCS; 2021-05-28)
PROC: 3E033GC Introduction of Other Therapeutic Substance into Peripheral Vein, Percutaneous Approach (ICD-10-PCS; 2021-05-28)
DX: K51.90 Ulcerative colitis, unspecified, without complications (principal)
CPT/HCPCS: 36415; 74177-TC; 80053; 81003; 82272; 83605; 83690; 83735; 84484; 85025; 85610; 85730; 87086; 93005; 93010; 96374; 96375; 99285-25